=== PATIENT | male | born 1965 | race Caucasian/White ===

== ENCOUNTER → 2017-08-13 | Outpatient (CLI) | payer MEDICARE ==
--- NOTE | 2017-08-13 11:06 | Diagnostic Imaging Report ---
INDICATION: Chest pain. COMPARISON: None. FINDINGS: Two views of the chest are obtained. Heart size is normal. The pulmonary vessels appear unremarkable. There is no pneumothorax, mediastinal widening or pleural fluid demonstrated. There are findings suggestive of COPD with some flattening of the diaphragms. The lungs are clear. No focal pneumonia is suspected. The osseous structures appear unremarkable. IMPRESSION: No acute abnormalities demonstrated. Hyperinflation suggestive of COPD. Dictated by: Dictated on workstation # [id number]
== END ==
LOC: RAD 10:38
PROVIDERS: ATTEND Family Medicine
DX: R91.8 Other nonspecific abnormal finding of lung field (principal); R07.9 Chest pain, unspecified
CPT/HCPCS: 71046

== ENCOUNTER → 2017-09-04 | Outpatient (CLI) | payer MEDICARE, OTHER ==
[~2017-09-04] MED LIST: CATHETER FLUSH 10 ML SYR IV PRN
[2017-09-04 13:21] VITALS: BP 156/66
== END ==
LOC: CARD 10:02
PROVIDERS: ATTEND Internal Medicine Cardiovascular Disease
DX: R07.89 Other chest pain (principal); I10 Essential (primary) hypertension; E78.5 Hyperlipidemia, unspecified; J44.9 Chronic obstructive pulmonary disease, unspecified; F41.9 Anxiety disorder, unspecified; H55.01 Congenital nystagmus
CPT/HCPCS: 93306

== ENCOUNTER 2017-10-09 11:50 | Day surgery (SDC) | payer MEDICARE, OTHER ==
[~2017-10-09] VITALS: Ht 180.3 cm; Wt 88.9 kg
[2017-10-09] VITALS (12 sets, daily range): BP systolic 127–148; BP diastolic 83–100
--- OUTSIDE RECORDS SUMMARY | 2017-10-09 11:53 | XMS REPORT ---
Author Author OLGA OLIVO [facility] Address Unknown Care Team Providers Care Repair Operator Name Role Phone OLGA OLIVO Unavailable PROBLEMS Type Condition ICD9-CM Code [id number] Code Onset Dates Condition Status SNOMED Code Problem Encounter for dental examination Z01.20 Active 420139976 ALLERGIES Substance Reaction Event Type Date Status N.K.D.A. Unknown Non Drug Allergy Jun, Unknown SOCIAL HISTORY No smoking Hx information available PLAN OF CARE Activity Details Follow Up prn Reason:filling VITAL SIGNS Blood pressure systolic 123 mmHg 2016-07-19 Blood pressure diastolic 81 mmHg 2016-07-19 MEDICATIONS Unknown Medications RESULTS No Results PROCEDURES Procedure Date Ordered Related Diagnosis Body Site CORE BUILDUP INCLUDING ANY PINS Jul 19, 2016 IMMUNIZATIONS No Known Immunizations
--- OUTSIDE RECORDS SUMMARY | 2017-10-09 11:54 | XMS REPORT ---
Author Author OLGA OLIVO [facility] Address Unknown Care Team Providers Care Supervisor Dimension [employer]house Name Role Phone OLGA OLIVO Unavailable PROBLEMS Type Condition ICD9-CM Code [id number] Code Onset Dates Condition Status SNOMED Code Problem Encounter for dental examination Z01.20 Active [id number] ALLERGIES Substance Reaction Event Type Date Status N.K.D.A. Unknown Non Drug Allergy May, Unknown SOCIAL HISTORY No smoking Hx information available PLAN OF CARE Activity Details Follow Up prn Reason:filling/hygiene VITAL SIGNS Blood pressure systolic 131 mmHg 2016-06-05 Blood pressure diastolic 78 mmHg 2016-06-05 MEDICATIONS Unknown Medications RESULTS No Results PROCEDURES Procedure Date Ordered Related Diagnosis Body Site RESIN COMPOS - 1 SURFACE POSTERIOR Jun 05, 2016 IMMUNIZATIONS No Known Immunizations
--- OUTSIDE RECORDS SUMMARY | 2017-10-09 11:54 | XMS REPORT ---
Author Author DENYS CUMMINGS [employer] Address Unknown Phone Unavailable Care Team Providers Care Grease Press Helper Name Role Phone DENYS CUMMINGS CP Unavailable Allergies, Adverse Reactions, Alerts Substance Reaction Event Type N.K.D.A. Info Not Available Non Drug Allergy Problems Problem Type Condition Code Onset Dates Condition Status Assessment Encounter for dental examination Z01.20 Active Problem Encounter for dental examination Z01.20 Active Medications No Known Medications Procedures Procedure Coding System Code Date INTRAORL-PERIAPICAL 1 FILM 23226 CPT-4 D0220 Apr 18, 2016 INTRAORL-PERIAPICAL EA ADD FILM CPT-4 D0230 Apr 18, 2016 COMP ORAL EVALUATION - NEW/EST PT CPT-4 D0150 Apr 18, 2016 BITEWINGS - FOUR FILMS CPT-4 D0274 Apr 18, 2016 INTRAORL-PERIAPICAL EA ADD FILM CPT-4 D0230 Apr 18, 2016 PANORAMIC FILM SEE ALSO CODE 78020 CPT-4 D0330 Apr 18, 2016 Vital Signs Date/Time: Apr 18, 2016 Blood Pressure Diastolic 74 mmHg Blood Pressure Systolic 118 mmHg Cardiac Monitoring Heart Rate 78 bpm Results No Known Results Summary Purpose eClinicalWorks Submission
--- OUTSIDE RECORDS SUMMARY | 2017-10-09 11:54 | XMS REPORT ---
Author Author DENYS CUMMINGS [facility] [address] [facility] Address [address] [place] [address] Care Team Providers Care Mine Inspector Name Role Phone DENYS CUMMINGS Unavailable PROBLEMS Type Condition ICD9-CM Code GCP70-IF Code Onset Dates Condition Status SNOMED Code Problem Encounter for dental examination Z01.20 Active [id number] ALLERGIES No Known Allergies SOCIAL HISTORY Never Assessed PLAN OF CARE Activity Details Follow Up 4 Months Reason:Perio Maint VITAL SIGNS Blood pressure systolic 106 mmHg 2016-08-24 Blood pressure diastolic 73 mmHg 2016-08-24 MEDICATIONS Unknown Medications RESULTS No Results PROCEDURES Procedure Date Ordered Result Body Site Periodontal maint procedures August 24, 2016 TOPICAL FLUORIDE VARNISH August 24, 2016 IMMUNIZATIONS No Known Immunizations MEDICAL (GENERAL) HISTORY Type Description Date Surgical History Rt knee surgery orthoscopic 2007 Surgical History cyst/tumor removed 2009 Hospitalization History Hospitalization for surgery only
--- OUTSIDE RECORDS SUMMARY | 2017-10-09 11:54 | XMS REPORT ---
Author Author CHRIS JESUS [employer] Address Unknown Phone Unavailable Care Team Providers Care Seo Specialist Name Role Phone CHRIS JESUS CP Unavailable Allergies, Adverse Reactions, Alerts Substance Reaction Event Type N.K.D.A. Info Not Available Non Drug Allergy Problems Problem Type Condition Code Onset Dates Condition Status Assessment Dental examination Z01.20 Active Problem Encounter for dental examination Z01.20 Active Medications No Known Medications Procedures Procedure Coding System Code Date Periodontal scaling and root CPT-4 D4341 Apr 18, 2016 Periodontal scaling and root CPT-4 D4341 Apr 18, 2016 Periodontal scaling and root CPT-4 D4341 Apr 18, 2016 Periodontal scaling and root CPT-4 D4341 Apr 18, 2016 Vital Signs Date/Time: Apr 18, 2016 Blood Pressure Diastolic 72 mmHg Blood Pressure Systolic 116 mmHg Results No Known Results Summary Purpose eClinicalWorks Submission
[2017-10-09] MEDS ORDERED: NS IV 1000 ML 1,000 ML ONE (12:00)
[2017-10-09] MEDS ORDERED: HEParin (CATH LAB) 2,000 ML IV ONE (12:00)
[2017-10-09] MEDS ORDERED: NS IV 1000 ML 1,000 ML IV SCH ×2 (12:15→16:21)
[2017-10-09] MEDS ORDERED: OMG1KC PO (12:32)
[2017-10-09] MEDS ORDERED: ALPR1TAB2 PO (12:32)
[2017-10-09] MEDS ORDERED: CHOL20003 PO (12:32)
[2017-10-09 12:39] LABS: HEMOGLOBIN 14.5 G/DL (13.3-17.7); MEAN PLATELET VOLUME 9.7 FL (7.4-10.4); RED BLOOD COUNT 4.74 10^6/uL (4.35-5.85); WHITE BLOOD COUNT 8.3 10^3/uL (4.3-11.0)
[2017-10-09 12:55] LABS: ALANINE AMINOTRANSFERASE 16 U/L (0-55); ALBUMIN 4.5 GM/DL (3.2-4.5); ALKALINE PHOSPHATASE 49 U/L (40-136); BILIRUBIN,TOTAL 0.4 MG/DL (0.1-1.0); BUN/CREATININE RATIO 17; CALCIUM 9.7 MG/DL (8.5-10.1); CARBON DIOXIDE 26 MMOL/L (21-32); CHLORIDE 105 MMOL/L (98-107); GFR ESTIMATED > 60; GLUCOSE 98 MG/DL (70-105); POTASSIUM 4.1 MMOL/L (3.6-5.0); SODIUM 139 MMOL/L (135-145)
[2017-10-09 12:58] LABS: INR 0.9 (0.8-1.4); PROTHROMBIN TIME PATIENT 12.6 SEC (12.2-14.7)
--- NOTE | 2017-10-09 13:04 | Diagnostic Imaging Report ---
PATIENT HISTORY: Chest pain, ABN STRESS, HTN. TECHNIQUE: Single frontal view of the chest. COMPARISON: 08/13/2017. FINDINGS: The lung volumes are large. No focal consolidation is seen. There is no pleural effusion or pneumothorax. The cardiomediastinal silhouette is normal in size. There is no acute osseous abnormality seen. IMPRESSION: Large lung volumes with no acute pulmonary abnormality. Dictated by: Dictated on workstation # [id number]
[2017-10-09] MEDS ORDERED: LIDOCAINE 1% INJ 50 ML (XYLOCAINE) VIAL ONE (14:03)
--- NOTE | 2017-10-09 15:33 | Cardiac Procedure Note-CS/ASA ---
Pre-Procedure Note Pre-Op Procedure Note H&P Reviewed The H&P was reviewed, patient examined and no changes noted. Date H&P Reviewed: Oct 09, 2017 Time H&P Reviewed: 15:32 Conscious Sedation Pre-Proced Time Reviewed: 15:32 ASA Class: 3 Airway Mallampati Classification: ([place] appropriate class) I. II. III, IV Lungs Heart ASA score ASA 1: a normal healthy patient ASA 2: a patient with a mild systemic disease (mid diabetes, controlled hypertension, obesity x ASA 3: a patient with a severe systemic disease that limits activity (angina , COPD, prior Myocardial infarction) ASA 4: a patient with an incapacitating disease that is a constant threat to life (CHF, renal failure) ASA 5: a moribund patient not expected to survive 24 hrs. (ruptured aneurysm) ASA 6: a declared brain patient whose organs are being harvested. For emergent operations, add the letter E after the classification Grade 3 Sedation Plan: Analgesia, Amnesia, Plan communicated to team members, Discussed options with patient/fam, Discussed risks with patient/fam Note The patient is an appropriate candidate to undergo the planned procedure, sedation, and anesthesia. The patient immediately re-assessed prior to indication. POOJA CARDENAS MD Oct 09, 2017 15:33
[2017-10-09] MEDS ORDERED: fentaNYL INJECTION 100 MCG/2 ML AMP ONE (15:37)
[2017-10-09] MEDS ORDERED: MIDAZOLAM 2 MG/2 ML (VERSED) VIAL ONE (15:37)
[2017-10-09] MEDS ORDERED: VERAPAMIL 5 MG/2 ML (CALAN) VIAL IV ONE (15:37)
[2017-10-09] MEDS ORDERED: HEParin 1000 UNIT/ML (10ML VIAL) FOR BOLUS ONE (15:37)
[2017-10-09] MEDS ORDERED: NITRO DRIP 25000 MCG/D5W 250 ML IV ONE (15:38)
--- NOTE | 2017-10-09 16:25 | Cardiac Cath Report ---
Cardiac Cath Report Physician (s)/Senior Product Analyst (s) Physician POOJA CARDENAS MD Pre-Procedure Diagnosis Pre-Procedure Diagnosis: Coronary artery disease Post-Procedure Note Procedure Start Date: Oct 09, 2017 Name of Procedure: Left heart catheterization Findings/Procedure Note PROCEDURE NOTE: After explaining the procedure to the patient, all pros and cons were explained , all questions were answered. The patient signed the consent and then he was placed on the cardiac catheterization laboratory. Groin was prepped SL fashion local anesthesia was used. Sheath placed in the right radial artery, Frances catheter was used, advanced to the left ventricular cavity and pressure was measured, pullback LV to aorta was done, coronary angiogram was done. At the end of the procedure the sheath was removed. Closure device with vascular band FINDINGS: Hemodynamics LV 138/23, end-diastolic pressure of 23 Aorta 121/81 mean of 84 ANATOMY: Left Main is free of obstructive disease Left Anterior Descending is slightly tortuous with no obstructive disease Left Circumflex is slightly tortuous with no obstructive disease Right Coronory Artery is moderate in size, the distal right coronary artery has [id number] disease nonobstructive disease CONCLUSION: 1. Mild to moderate coronary artery disease nonobstructive disease 2. Mildly elevated left ventricular end-diastolic pressure DISCUSSION AND RECOMMENDATION: Abnormal stress test is probably due to extracardiac attenuation, no intervention is needed Anesthesia Type: Conscious Sedation Estimated blood loss (mL): 5 ml Contrast Amount: 35 ml Total Radiation Dose: 252 mGy Post-Procedure Diagnosis Post-operative diagnosis: Chest pain nonspecific etiology Coronary artery disease Hypertension POOJA CARDENAS MD Oct 09, 2017 4:25 pm
== END 2017-10-09 19:56 | disposition home or self-care (01) ==
LOC: CATH 11:50 → ICU 16:39 → CATH 19:56
PROVIDERS: ATTEND Internal Medicine Cardiovascular Disease
DX: I25.10 Atherosclerotic heart disease of native coronary artery without angina pectoris (principal); R07.89 Other chest pain; I10 Essential (primary) hypertension; Z11.2 Encounter for screening for other bacterial diseases; J44.9 Chronic obstructive pulmonary disease, unspecified; Z87.891 Personal history of nicotine dependence; E55.9 Vitamin D deficiency, unspecified; E78.5 Hyperlipidemia, unspecified; F32.9 Major depressive disorder, single episode, unspecified; F41.9 Anxiety disorder, unspecified; Z82.49 Family history of ischemic heart disease and other diseases of the circulatory system; F10.21 Alcohol dependence, in remission
CPT/HCPCS: 36415; 71045; 80053; 85027; 85610; 85730; 87081; 93458

== ENCOUNTER 2021-06-22 05:36 | Outpatient (CLI) | payer MEDICARE ==
[~2021-06-22] VITALS: Ht 177.8 cm; Wt 86.4 kg
[~2021-06-22 05:36] MED LIST changes: +ALPR1TAB2 PO; -CATHETER FLUSH 10 ML SYR IV PRN; +CHOL20003 PO; +OMG1KC PO
[2021-06-22] MEDS ORDERED: CATHETER FLUSH 10 ML SYR IV PRN (08:15)
[2021-06-22] MEDS ORDERED: CHOL200025 PO (15:11)
--- NOTE | 2021-06-23 16:01 | NUCLEAR STRESS TEST ---
REGADENOSON NUCLEAR STRESS Date of procedure: 06/22/2021. Primary care provider: Lobito Potts MD Admitting physician: Sourav Walker Jr., MD. INDICATION: Preoperative cardiovascular evaluation. BASELINE ELECTROCARDIOGRAM: Sinus rhythm with low voltage in the precordial leads. STRESS TEST PROCEDURE: The patient was administered 0.4 mg of intravenous R egadenoson. The resting heart rate was 80 bpm and the peak heart rate was 96 bpm. The resting blood pressure was 159/69 mmHg and the minimum blood pressure was 159/69 mmHg. This represents a normal heart rate and a blunted blood pressure response to Regadenoson. The test was stopped due to the protocol. There was no chest discomfort during the test. There were no arrhythmias during the test. There were no significant stress induced electrocardiogram changes. NUCLEAR PROCEDURE: The patient was administered 9.9 mCi of intravenous technetium 99m Tetrofosmin at rest for the rest images. The patient was subsequently administered 30.1 mCi of intravenous technetium 99m Tetrofosmin at peak stress for the stress images. Following an appropriate wait after each injection, imaging was obtained. The images were subsequently processed and reformatted in the usual views. Gated imaging was obtained. The image quality was adequate with a mild degree of gastrointestinal attenuation artifact. CT attenuation correction was used as a adjunct to standard imaging. Both the corrected and uncorrected images were reviewed for interpretation. NUCLEAR RESULTS: There was normal myocardial perfusion in all segments without evidence of infarction or ischemia. There was normal left ventricular chamber size with an end-diastolic volume of 40 mL and an end-systolic volume of 9 mL. There was borderline transient ischemic dilatation. The TID ratio was 1.3. There was normal wall motion in all segments with a calculated ejection fraction of 78%. IMPRESSION: 1. Normal heart rate and a blunted blood pressure response to regadenoson. 2. There was no chest discomfort, arrhythmias, or electrocardiogram changes during the test. 3. There was normal myocardial perfusion in all segments without evidence of infarction or ischemia. 4. There was borderline transient ischemic dilatation with a TID ratio of 1.3. 5. There was normal wall motion in all segments with a calculated ejection fraction of 78%. 6. This is a borderline abnormal result showing borderline transient ischemic dilatation as outlined above. Certain portions of this document may have been dictated utilizing voice recognition technology. Inherent to this technology, typographical and grammatical errors may exist. As much as I am diligent to identify and correct these mistakes, some errors may remain in the document. SOURAV WALKER JR, MD Jun 23, 2021 16:01
== END 2021-06-22 16:17 ==
LOC: PREOP 05:36
PROVIDERS: ATTEND Surgery
DX: Z01.810 Encounter for preprocedural cardiovascular examination (principal); Z12.11 Encounter for screening for malignant neoplasm of colon; K64.9 Unspecified hemorrhoids
CPT/HCPCS: 78452; 93017; A9502

== ENCOUNTER 2021-06-29 08:34 | Day surgery (SDC) | payer MEDICARE ==
--- NOTE | 2021-06-28 14:36 | HISTORY AND PHYSICAL ---
DATE OF SERVICE: ATTENDING PRIMARY CARE PHYSICIAN: Dr. Lobito Potts. This is for date of service, 06/29/2021. HISTORY OF PRESENT ILLNESS: The patient is a 56-year-old male who was referred over to us in need of a screening colonoscopy. His last colonoscopy was in 2007, which was normal except for some hemorrhoids and did undergo a hemorrhoid banding at that time. He denies any diarrhea or constipation as well as no abdominal pain. He also denies any blood in his stool. He also denies any family history of any colon cancer. 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 He reports that he does occasionally have some bleeding with bowel movements. I believe this is most likely due to his hemorrhoids and would like to proceed with either banding or formal hemorrhoidectomy if possible. MEDICAL HISTORY: Hemorrhoids, history of condyloma of the anal region, anxiety. SURGICAL HISTORY: Colonoscopy, hemorrhoid banding in 2007, fulguration of condyloma of the inguinal region. ALLERGIES: No known drug allergies. MEDICATIONS: None. SOCIAL HISTORY: Previous for tobacco smoke at 2 packs per day for 8 years, quit in 2013. Social for alcohol. FAMILY HISTORY: Grandmother, breast cancer. Grandparent, myocardial infarction, hypertension. VITAL SIGNS: Blood pressure is 161/90. Current weight is 193.3 pounds, 5 feet 11 inches. REVIEW OF SYSTEMS: This is a well-nourished male in no acute distress. He is not experiencing any shortness of breath or difficulty breathing. No chest pain, palpitations or diaphoresis. No nausea, vomiting or abdominal pain. No diarrhea or constipation. He does report occasional episodes of bright red blood per rectum daily with bowel movements. No dark tarry stools. No fever or chills. No recent inadvertent weight loss. All other review of systems negative. PHYSICAL EXAMINATION: CHEST: Clear. Good breath sounds bilaterally. HEART: Regular, no murmurs. EXTREMITIES: No lower extremity edema. Negative Homans sign. HEENT: No scleral icterus. NECK: No cervical lymphadenopathy. ABDOMEN: Soft, nontender, nondistended. SKIN: Warm, dry and pink. NEUROLOGIC: Awake, alert and oriented x3. ASSESSMENT AND PLAN: A 56-year-old male who is in need of a screening colonoscopy, who also has a history of anal condyloma as well as symptomatic hemorrhoids. At this time, we will proceed with scheduling him for a screening colonoscopy. He reports that he would also like to proceed with a hemorrhoidal banding versus possible formal hemorrhoidectomy at the same time based on the findings of the colonoscopy. We will proceed with scheduling him for an anal exam under anesthesia, screening colonoscopy and formal hemorrhoidectomy versus hemorrhoid banding. Job ID: [id number] DocumentID: [id number] Dictated Date: 06/28/2021 13:48:14 Drill Sharpener Date: 06/28/2021 14:36:24 Dictated By: RENE LIANG
[2021-06-29] VITALS (10 sets, daily range): BP systolic 119–183; BP diastolic 85–105
[~2021-06-29] VITALS: Ht 177.8 cm; Wt 86.4 kg
[~2021-06-29 08:34] MED LIST changes: +CHOL200025 PO
[2021-06-29] MEDS ORDERED: ceFAZolin 2 GM IV Premixed 50 ML IV ONE (09:00)
[2021-06-29] MEDS: LACTATED RINGERS 1,000 ML IV PRN ×2 (09:08→11:24)
[2021-06-29] MEDS ORDERED: LIDOCAINE/EPI 1%-1:200,000 (XYLOCAINE) 30 ML VIAL ONE (09:10)
[2021-06-29] MEDS ORDERED: proPOfol 200 MG/20 ML (DIPRIVAN) VIAL IV ONE (09:14)
[2021-06-29] MEDS ORDERED: fentaNYL INJ 100 MCG/2 ML AMP ONE (09:14)
[2021-06-29] MEDS ORDERED: ONDANSETRON 4 MG/2 ML (SDV) Z0FRAN ONE (09:14)
[2021-06-29] MEDS ORDERED: MIDAZOLAM 2 MG/2 ML (VERSED) VIAL ONE (09:14)
[2021-06-29] MEDS ORDERED: LIDOCAINE PF 2% 5 ML (XYLOCAINE) VIAL ONE (09:14)
--- NOTE | 2021-06-29 09:21 | Progress Note-Pre Operative ---
Pre-Operative Progress Note H&P Reviewed The H&P was reviewed, patient examined and no changes noted. Date Seen by Provider: Jun 29, 2021 Time Seen by Provider: 09:20 Date H&P Reviewed: Jun 29, 2021 Time H&P Reviewed: 09:15 Pre-Operative Diagnosis: Symptomatic Hemorrhoids, screening colonoscopy YURI CABRERA APRN Jun 29, 2021 09:21
[2021-06-29] MEDS ORDERED: HYDR-3820 PO (09:23)
--- NOTE | 2021-06-29 09:23 | Discharge Inst-Surgical ---
D/C Lap Instructions-KIDO Reconcile Patient Problems Problems Reviewed?: Yes New, Converted, or Re-Newed RX: RX on Chart Follow Up Appt in 2 weeks Activity as tolerated No driving for 24 hours No driving while on pain medications Incentive Spirometry use every 2 hours while awake Regular Diet Symptoms to Report: Fever over 101 degree F, Nausea/Vomiting Infection Signs and Symptoms to report: Increased redness, Foul odor of wound, Increased drainage Bathing instructions: May shower Operative Area Clean/Dry; Keep incision clean/dry If any problems/questions: Contact your physician or go to Emergency Room YURI CABRERA APRN Jun 29, 2021 09:23
[2021-06-29] MEDS ORDERED: ONDANSETRON 4 MG/2 ML (SDV) Z0FRAN IVP PRN ×2 (09:30→12:00)
[2021-06-29] MEDS ORDERED: ACETAMINOPHEN 325 MG TABLET PO PRN (09:30)
[2021-06-29] MEDS ORDERED: oxyCODONE/APAP 5/325MG (PERCOCET 5) TABLET PO PRN (09:30)
[2021-06-29] MEDS ORDERED: morphine INJ 10 MG/ML 1ML (SYR OR VIAL) IVP PRN (09:30)
--- NOTE | 2021-06-29 11:46 | Progress Note-Post Operative ---
Post-Operative Progess Note Surgeon (s)/Speech Correction Assistant (s) Surgeon Dr. Avery Gaviria M.D. Speech Correction Assistant: Buddy Cabrera APRN Pre-Operative Diagnosis Symptomatic Hemorrhoids, screening colonoscopy Post-Operative Diagnosis Stage III external and internal hemorrhoids, moderate sigmoid diverticulosis Procedure & Operative Findings Date of Procedure 06/29/21 Procedure Performed/Findings Pudendal nerve block, Anal examine under anesthesia, hemorrhoidectomy and colonoscopy Anesthesia Type GET with pudendal nerve block Estimated Blood Loss Estimated blood loss (mL): minimal Specimens/Packing Specimens Removed 1) Right posterior hemorrhoid 2) Right anterior hemorrhoid Packing: Gelfoam wrapped with surgicel placed in anus BUDDY CABRERA ENGINEERING ADMINISTRATOR Jun 29, 2021 11:45
[2021-06-29] MEDS ORDERED: SEVOFLURANE (ULTANE) 15 ML INHAL SOLN ONE (11:50)
[2021-06-29] MEDS ORDERED: MEPERIDINE (DEMEROL) INJ 50 MG/ML IVP ONE (12:00)
[2021-06-29] MEDS ORDERED: PROMETHAZINE INJ 25 MG/ML (PHENERGAN) AMP IVP ONE (12:00)
[2021-06-29] MEDS ORDERED: HYDROmorphone 2 MG/ML VIAL (DILAUDID) IV ONE (12:00)
[2021-06-29] MEDS ORDERED: morphine INJ 10 MG/ML 1ML (SYR OR VIAL) IVP ONE (12:00)
--- NOTE | 2021-06-29 13:09 | Anesthesia-General Post-Op ---
General Patient Condition Mental Status/LOC: Same as Preop Cardiovascular: Satisfactory Nausea/Vomiting: Absent Respiratory: Satisfactory Pain: Controlled Complications: Absent Post Op Complications Complications None Follow Up Care/Instructions Patient Instructions None needed. Anesthesia/Patient Condition Patient Condition Patient is doing well, no complaints, stable vital signs, no apparent adverse anesthesia problems. No complications reported per nursing. ROHAN MENJIVAR CRNA Jun 29, 2021 13:09
--- NOTE | 2021-06-29 13:23 | OPERATIVE REPORT ---
DATE OF SERVICE: 06/29/2021 ATTENDING PRIMARY CARE PHYSICIAN: Dr. Trav Potts. PREOPERATIVE DIAGNOSIS: Symptomatic stage III external and internal hemorrhoids, rectal bleeding, and screening colonoscopy. POSTOPERATIVE DIAGNOSES: Stage III chronic external and internal hemorrhoids involving two hemorrhoidal cushions. No strictures or fistulas. Mild to moderate sigmoid diverticulosis. PROCEDURES PERFORMED: Anal exam under anesthesia, pudendal nerve block, Wu closed hemorrhoidectomy, and colonoscopy. SURGEON: Usama Gaviria MD. SHANK TAPPER: Buddy Andrews APRN. ANESTHESIA: General, laryngeal mask airway with a pudendal nerve block. ESTIMATED BLOOD LOSS: Minimal. FINDINGS: Stage III chronic external and internal hemorrhoids involving two hemorrhoidal cushions. No strictures or fistulas. Mild to moderate sigmoid diverticulosis. DISPOSITION: The patient tolerated the procedure well. INDICATIONS FOR PROCEDURE: The patient is a 56-year-old male, who has had symptomatic hemorrhoids for many years. He had the hemorrhoids in 2007 and underwent an internal hemorrhoidal banding as well as a colonoscopy. Since that time, he reports that he has had reoccurring issues with hemorrhoidal flareups including swelling, poor hygiene as well as rectal bleeding. He is also due for another colonoscopy. He does not report any family history of colon cancer. DESCRIPTION OF PROCEDURE: The patient was brought to the operating room and laid supine on the table. After adequate IV pain and sedative medications and general laryngeal mask airway intubation, the patient was placed in lithotomy position and the perineum was prepped and draped in a standard surgical fashion. We then proceeded with a pudendal nerve block on the bilateral aspect of the anus approximately 1 cm below the symphysis pubis using 0.5% Marcaine with epinephrine. The anal sphincters then relaxed and a self-retaining speculum placed. There were two hemorrhoidal cushions that were stage III, both internal and external hemorrhoidal cushions; one at the right anterior and the second one at the right posterior positions of the anus with the patient in supine position. There were no fistulous strictures or any fissures identified. No tumors identified as well. We then proceeded with an excision of the posterior right hemorrhoidal cushion. A 2-0 Vicryl suture was placed anterior to the internal hemorrhoidal cushion. We then proceeded with a formal hemorrhoidectomy encompassing the external and internal hemorrhoidal cushion en bloc using a Sonicision with identification and sparing of the anal sphincters as well as good hemostasis. Using the previously placed suture, the mucosa was then reapproximated in a running fashion. Good hemostasis was observed. We then proceeded with excision of the right anterior hemorrhoidal cushion. Again, this was a stage III external and internal hemorrhoidal cushion and a suture placed proximal to the internal hemorrhoidal cushion with a 2-0 Vicryl. The external and internal hemorrhoidal cushion was then excised en bloc using the Sonicision with identification and sparing of the anal sphincter and visualization of good hemostasis. The mucosa was then approximated using the 2-0 Vicryl in a running fashion. Good hemostasis was observed. No strictures identified post-procedure. We then proceeded with the colonoscopy portion of the procedure and the digital rectal examination was performed. Prostate gland was palpable and appeared normal. The endoscope was then intubated to the anus and rectum gently insufflated. The endoscope was then advanced through the valves of Dixon of the rectum with no polyps or any neoplasms identified. Through the sigmoid colon, a mild to moderate sigmoid diverticulosis identified. The endoscope was then advanced through the remainder of the descending, transverse, and ascending colon to the cecum. These segments were normal. There were no polyps or any neoplasms identified throughout the colon or rectum. The endoscope was then withdrawn while taking a second look and suctioning of residual air with no additional findings. The patient tolerated the procedure well. He will be instructed to remove the hemostatic packing with his first bowel movement and to do Sitz baths q.i.d. as well as after every bowel movement. He will also be instructed to take stool softeners, laxatives as well as fiber supplementation to make his stools soft with no form on a daily basis. Job ID: [id number] DocumentID: [id number] Dictated Date: 06/29/2021 12:02:37 Industrial Equipment Mechanic Date: 06/29/2021 13:23:10 Dictated By: MD DERRICK MARRERO
== END 2021-06-29 13:50 ==
LOC: SDC 08:34
PROVIDERS: ATTEND Surgery
DX: K62.5 Hemorrhage of anus and rectum (principal); K64.2 Third degree hemorrhoids; K64.4 Residual hemorrhoidal skin tags; K57.30 Diverticulosis of large intestine without perforation or abscess without bleeding; F41.9 Anxiety disorder, unspecified; Z87.891 Personal history of nicotine dependence
CPT/HCPCS: 87081; 88304